=== PATIENT | male | born 1980 | race Hispanic/Latino ===

== ENCOUNTER 2023-11-17 12:22 | Emergency (ER) | payer SELFPAY ==
[2023-11-17 12:23] VITALS: BP 139/98; PULSE 71; RESP 16; TEMP 36.2; O2SAT 98; BMI 26.2
--- NOTE | 2023-11-17 12:51 | ED.VIS.GI ---
HPI HPI - GI History of Present Illness Chief Complaint: Abd Pain Detail of Chief Complaint: Intermittent abdominal pain for a year. Informant: patient and family (Graphics Intern with him this either friend or family.) Abdominal Pain/Flank Pain Onset: - (1 year. Increasing over the last 2 weeks.) Context: Gradual Onset Timing: Intermittent Quality: Dull Location: Diffuse Current Severity: Gone Maximum Severity: Mild Worsened by: Nothing Relieved by: Nothing Nausea/Vomiting/Emesis GI Symptom: Negative for Nausea or Vomiting Diarrhea/Melena/Hematochezia GI Symptom: Negative for Diarrhea, Melena or Hematochezia Associated Symptoms Associated Symptoms: Negative for Dysuria, Frequency, Hematuria or Urgency Narrative Narrative: 43-year-old male no seen past medical history. 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 Basically has had lower abdominal and back pain for a year. It comes and goes. He states he has had it worse in the last 2 weeks. Denies vomiting, diarrhea or fever. No weight loss. No dysuria or hematuria. No prior abdominal surgery. Denies any trauma. Prior similar symptoms: Yes Recent Illness/Hospitalization: No PFSH PFSH Medical History no medical history no medical history Allergy/AdvReac Type Severity Reaction Status Date / Time No Known Allergies Allergy Verified 11/17/23 12:26 Surgical History no surgical history no surgical history Social History Smoking Status: Never smoker ROS ROS ED ROS Narrative Abdominal pain radiating from both flanks. No vomiting, diarrhea or fever. No weight change. No dysuria. Review of Systems ROS Unobtainable: Denies due to encephalopathy Constitutional Constitutional ED: Denies chills or fever(s) ENT ENT ED: Denies ear pain Cardiovascular Cardiovascular: Denies chest pain Respiratory/Chest Respiratory/Chest: Denies cough or dyspnea Gastrointestinal Gastrointestinal: Reports abdominal pain; Denies constipation, diarrhea, melena, nausea or vomiting Genitourinary Genitourinary ED: Denies dysuria or hematuria Musculoskeletal Musculoskeletal: Reports back pain; Denies arthralgias Integumentary Denies abscess or Abrasions Neurologic Neurologic: Denies headache(s) Psychiatric Psychiatric: Denies anxiety Endocrine Endocrinology: Denies polydipsia Hematologic/Lymphatic Hematologic/Lymphatic: Denies easy bleeding Allergic/Immunologic Allergic/Immunologic ED: Denies mouth swelling, tongue swelling or urticaria EXAM Physical Exam Narrative Exam Narrative: Well-appearing 43-year-old male. Vital signs stable afebrile. HEENT exam unremarkable. Neck nontender JVD. No lymphadenopathy. Lungs clear to auscultation bilateral. Heart regular rhythm rate about 70 no murmur. Chest wall and ribs nontender. Abdomen soft, nontender, nondistended, normal bowel sounds without peritoneal signs. No hernia or mass. No obstruction. No signs of trauma. Both the right upper and right lower quadrant completely nontender as is the left lower quadrant. Back nontender. Moving all 4 extremities. Nontender no edema. Normal strength. Neurologically is awake and alert. Answering questions and following commands. No focal motor deficits. Benign exam. Const Vital Signs: 11/17/23 12:23 11/17/23 14:58 Temperature 97.2 F L Temperature Source Temporal Pulse Rate 71 Respiratory Rate 16 18 Blood Pressure 139/98 H Blood Pressure Mean 111 Pulse Ox 98 Oxygen Delivery Method Room Air Room Air Positive well nourished and well developed; Negative for obese, cachectic, contractures or unkempt General Appearance ED: well developed and NAD; Negative for unkempt, cachectic, contractures or pallor Nutritional Appearance: Negative for cachectic or obese HEENT Reports moist mucous membranes normocephalic and atraumatic; Negative for trauma or tenderness Eyes PERRL and EOMs intact bilaterally General Eye ED: Negative for pale conjunctiva or scleral icterus Neck no lymphadenopathy, supple and no JVD General: Negative for tenderness Carotids: Negative for other Lymph Lymphatic: Negative for other Resp normal respiratory effort and clear to auscultation bilaterally Effort and Inspection: Negative for respiratory distress Auscultation: Negative for rales, rhonchi or wheezes Cardio regular rate, regular rhythm, S1 normal heart sound, S2 normal heart sound and no murmurs Rate: Negative for bradycardia or tachycardic Rhythm: Negative for abnormal rhythm GI non-tender, non-distended and no masses Inspection: Negative for abdominal distention Auscultation: normoactive bowel sounds Palpation: soft; Negative for tender, guarding, rigid, hepatomegaly, splenomegaly, hernia, mass, pulsatile mass or rebound tenderness present Back/Spine no CVA tenderness General Back: Negative for CVA tenderness Cervical Spine: Negative for cervical spine tenderness Thoracic Spine / Upper Back: Negative for thoracic spinal tenderness Lumbar Spine / Lower Back: Negative for lumbar spinal tenderness Coccyx: Negative for other Extremity full ROM General Extremety ED: Negative for edema, tenderness or other findings General Extremity: Negative for edema or other findings Neuro CN's II-XII intact bilaterally and moves all extremities Sensorium / Orientation: alert, oriented to person, oriented to place and oriented to time; Negative for orientation impaired, confused, lethargic or stuporous Motor Exam: strength 5/5 throughout Psych mental status grossly normal and thought process normal Appearance: Negative for unkempt Attitude: No agitated Mood & Affect: Negative for depressed, anxious or tearful Skin no wounds General Skin Exam: Negative for jaundice or pallor Lesions: no lesions Rashes: no rashes Trauma: Negative for abrasion Nails: Negative for discolored MDM MDM MDM Narrative Medical decision making narrative: 43-year-old male who is abdominal pain for a year is a completely benign nontender exam. Screening labs are being obtained. I do not think he needs any imaging at this time unless the labs are significant abdomen normal that may direct me to do other testing. He does not need any medication at this time. Repeat exam patient is doing well at 325 p.m. Abdomen is completely benign. Will be discharged home with outpatient follow-up. History & Record Review Discussion w/independent historian: Patient Additional record(s) reviewed:: No prior records Lab Data Attestation: I reviewed the patient's lab results. Lab results narrative: CBC normal. White count of 6. H&H 15 and 44. Platelets 223. Electrolytes normal. Gap of 2. Normal BUN of 10 creatinine 0.9. Glucose 103. Liver enzymes normal. Urinalysis normal. No signs of infection no white or red cells nor nitrates nor bacteria. All labs are completely normal. Labs: Laboratory Results - last 24 hr 11/17/23 11/17/23 13:08 13:20 WBC 6.0 RBC 4.95 Hgb 15.2 Hct 44.1 MCV 89.1 MCH 30.7 MCHC 34.5 RDW Std Deviation 39.3 RDW Coeff of [place] 12.0 Plt Count 223 MPV 10.1 Immature Gran % (Auto) 0.200 Neut % (Auto) 55.8 Lymph % (Auto) 31.9 Dickey % (Auto) 8.8 Eos % (Auto) 2.3 Baso % (Auto) 1.0 Absolute Neuts (auto) 3.4 Absolute Lymphs (auto) 1.92 Nucleated RBC % 0 Sodium 139 Potassium 3.7 Chloride 107 Carbon Dioxide 30.0 Anion Gap 2 L BUN 10 Creatinine 0.97 Estim Creat Clear Calc 80.66 Est GFR (MDRD) Af Amer 110 Est GFR (MDRD) Non-Af 91 BUN/Creatinine Ratio 10.3 Glucose 103 Calcium 9.3 Total Bilirubin 0.50 AST 20 ALT 40 Alkaline Phosphatase 87 Total Protein 7.7 Albumin 3.9 Globulin 3.8 Albumin/Globulin Ratio 1.0 Urine Color Yellow Urine Clarity Clear Urine pH 7.0 Ur Specific [place] 1.010 Urine Protein Negative Urine Glucose (UA) Normal Urine Ketones Negative Urine Occult Blood Negative Urine Nitrite Negative Urine Bilirubin Negative Urine Urobilinogen Normal Ur Leukocyte Esterase Negative Urine RBC 0 SEEN Urine WBC 0 SEEN Ur Squamous Epith Cells 0 SEEN Urine Bacteria 0 SEEN Urine Mucus 0 SEEN Discharge Plan Triage Chief Complaint: Abd Pain Other Complaint: Back ED Provider: Danny Melchor Dx/Rx/DC Orders Clinical Impression: Abdominal pain Instructions: ED Abdominal Pain Unkn Cause Male... Primary Care Provider: Care Physician,No Primary Referrals: Josselin Beverly MD [Med Staff - [facility]] - 1-2 Weeks NOT,DEFINED [Non-Staff] - Activity Restrictions/Additional Instructions: All your labs are normal. Your abdominal exam is normal. Follow-up with a local primary care physician. Print Language: Italian Disposition Disposition: Home, Self Care
--- OUTSIDE RECORDS SUMMARY | 2023-11-17 13:02 | XMS RPT_ITS ---
Author Name Auto Generated Organization OHIP PROBLEMS No Problem Records Found PROCEDURES No Procedure Records Found RESULTS PROGRESS Observed: 11/17/2023 12:16 PM Status: COMPLETED Source: [facility] REPOSITORY HNO ID: [id number] Author: SHEKHAR BOWENS APRN.RCP Service: ? Author Type: Nurse Practitioner Type: Progress Notes Filed: 11/17/2023 12:16 Note Text: Patient came in with complaints of back pain that radiates to the front on the left side. Patient says it is a 9 out of 10. Patient says he has been dealing with it on and off for a year. Patient does not appear to be in any distress but is being referred to the ER for full evaluation as testing is very limited on a Sunday. Patient was okay with this and his caregiver will take him. CNOV Observed: 11/17/2023 12:15 PM Status: COMPLETED Source: [facility] REPOSITORY Office Visit (WSTR) CINDY URBAN ([id number]) 1980 [facility] Date Time Provider Department 11/17/23 12:15 PM SHEKHAR BOWENS [facility] During your visit today, we recorded the following information about you: Shekhar Bowens APRN.RCP 11/17/2023 12:16 PM Signed Patient came in with complaints of back pain that radiates to the front on the left side. Patient says it is a 9 out of 10. Patient says he has been dealing with it on and off for a year. Patient does not appear to be in any distress but is being referred to the ER for full evaluation as testing is very limited on a Sunday. Patient was okay with this and his caregiver will take him. Allergies As of Date: 11/17/2023 (Not on File) Date Reviewed: Never Reviewed Primary Visit Diagnosis:Left lower quadrant abdominal pain [R10.32] Problem List As Of Date: 11/17/2023 (None) Encounter Status:Closed by SHEKHAR BOWENS on 11/17/23 ALLERGIES No Allergies Records Found ENCOUNTERS ADMIT/DISCHARGE ACCOUNT NUMBER ADMITTING ENCOUNTER CLASS LOC ATION SOURCE 11/17/2023/ 4 [id number] Ambulatory [facility] HospitalBuild ing:[facility] PAYERS No Payer Records Found
[2023-11-17 13:13] LABS: Bacteria 0 SEEN /hpf (None Seen); Mucous, Urine 0 SEEN /hpf (<or=2+); Red Blood Cells-Urine 0 SEEN /hpf (0-5); Squamous Epithelial Cells - UA 0 SEEN /hpf (0-5); White Blood Cells 0 SEEN /hpf (0-5)
[2023-11-17 13:16] LABS: Color, Urine Yellow (Yellow); Glucose, Dipstick Normal (Normal); Ketone-Dipstick Negative (Negative); Leukocyte Esterase-Dipstick Negative /ul (Negative); Nitrite-Dipstick Negative (Negative); Occult Blood-Urine Negative /ul (Negative); Protein-Dipstick Negative (Negative); Urine Bilirubin Dipstick Negative (Negative); Urine Clarity Clear (Clear); Urine Urobilinogen Normal (Normal)
[2023-11-17 13:32] LABS: Absolute Lymphocyte Count 1.92 X10^3/uL (0.83-4.51); Absolute Neutrophil Count 3.4 X10^3/uL (2.0-7.7); Basophil# 0.06 X10^3/uL; Eosinophil# 0.14 X10^3/uL; Eosinophils% 2.3 % (0-5); Hematocrit 44.1 % (40-54); Hemoglobin 15.2 g/dL (13.0-16.5); Lymphocyte # 1.92 X10^3/ul (0.83-4.51); Lymphocyte % 31.9 % (19-41); Mean Corp Hgb Conc 34.5 g/dL (32-36); Mean Corpuscular Hgb 30.7 pg (27.0-32.0); Mean Corpuscular Volume 89.1 fL (80-94); Mean Platelet Vol. 10.1 fl (6.2-12.0); Monocyte# 0.53 X10^3/uL; Monocyte% 8.8 % (0-10); NRBC Flagged by Analyzer 0 % (0-5); Neutrophil # 3.36 X10^3/uL (2.7-7.7); Neutrophil % 55.8 % (47-70); Platelet Count 223 K/mm3 (150-450); RBC Distribution Width SD 39.3 fl (35.1-43.9); Red Blood Count 4.95 M/mm3 (4.6-6.2)
[2023-11-17 13:54] LABS: AST(SGOT) 20 U/L (15-37); Alanine Aminotransfer ALT/SGPT 40 U/L (16-61); Albumin, Serum 3.9 g/dL (3.2-5.0); Alkaline Phosphatase 87 U/L (45-117); Anion Gap 2 (5-15); BUN 10 mg/dL (7-18); BUN/Creat Ratio 10.3 RATIO (10-20); Calcium,Total 9.3 mg/dL (8.5-10.1); Chloride 107 mmol/L (98-107); Creatinine, Serum 0.97 mg/dL (0.70-1.30); EST Glomerular Filtration Rate 91 mL/min (>60); Est Glom Filt Rate - Afr Amer 110 mL/min (>60); Estimated Creatinine Clearance 80.66 ml/min; Globulin 3.8 g/dL (2.2-4.2); Glucose 103 mg/dL (74-106); Potassium 3.7 mmol/L (3.5-5.1); Protein, Total 7.7 g/dL (6.4-8.2); Sodium Level 139 mmol/L (136-145)
[2023-11-17 14:58] VITALS: RESP 18
== END 2023-11-17 16:25 | disposition home or self-care (01) ==
PROVIDERS: Emergency Provider Emergency Medicine; Visit Provider Emergency Medicine
DX: R10.9 Unspecified abdominal pain (principal)
CPT/HCPCS: 80053; 81001; 85025; 99283; A4216